=== PATIENT | male | born 1970 ===

== ENCOUNTER 2025-08-19 16:54 | Inpatient (IN) | payer BC, SELFPAY ==
[2025-08-19 11:07] VITALS: BP 146/99
[2025-08-19 11:27] VITALS: BMI 23.3
[2025-08-19 11:55] LABS: Hematocrit 45.7 % (39.0-52.0); Hemoglobin 15.7 g/dL (13.0-18.0); Mean Corp Hgb Conc. 34.4 g/dL (33.0-37.0); Mean Corpuscular Volume 85.1 fL (80.0-94.0); Nucleated Red Blood Cells % 0 % (-); Platelet Count 556 10^3/uL (130-400); Red Cell Dist. Width 13.3 % (11.5-14.5); Urine Character Slightly Cloudy (Clear)
--- NOTE | 2025-08-19 11:58 | ED.GENMED ---
History of Present Illness
<Jeniffer Lombardo SLIP FEEDER - Last Filed: 08/20/25 10:04>
General
Chief Complaint: Abdominal Pain
Source: patient
Exam Limitations: none
Time Seen by Provider: 08/19/25 11:26
Nursing documentation reviewed up to this point in time: agreed with
History of Present Illness
History of Present Illness:
55-year-old male with no significant PMHX, takes no daily meds, hx Left inguinal hernia repair, recent diagnosis with R inguinal hernia 08/[address] Berkowitz and has surgery scheduled with Dr. Osborn on 09/08 presents with generalized abdominal
pain and bloating that has gradually worsened over past 3 weeks. The hernia has not bothered him except when he coughs. He feels the general abdominal pains started immediately after he was informed about the hernia and wonders if it's related. On
08/07, he developed burning and discolored urine and difficulty urinating so was given Bactrim DS which he states helped initially but the day after Thanksgiving 08/15, abdominal pain got worse again. He states abdominal pain keeps him up at night.
Has felt nausea but no vomiting, feels 'acid reflux' like symptoms. Denies fever/chills. Last BM was today, soft, brownish yellow which is unusual for him. Pain is described as dull, with intermittent shooting pains. Now pain 6/10 and feels bloated.
Past History
<Jeniffer Lombardo, SLIP FEEDER - Last Filed: 08/20/25 10:04>
Past History
ED Past Medical History: None
ED Past Surgical History: Other (L inguinal hernia repair)
Social History
Tobacco: Former smoker
Alcohol: None
Personal:
Living: with family
Employment: Employed
Review of Systems
<Jeniffer Lombardo, SLIP FEEDER - Last Filed: 08/20/25 10:04>
Review of Systems
Allergies reviewed?: Yes
All Other Systems: ROS reviewed and negative except as documented in HPI and ROS
Constitutional: Reports weight loss (15 lbs past 3 weeks)
Respiratory: Denies trouble breathing
Cardiac: Denies chest pain
ABD/GI: Reports abdominal pain, nausea and anorexia; Denies vomiting, diarrhea, constipated, bloody stools or black stools
: Reports dysuria and difficulty voiding; Denies flank pain or urgency
Musculoskeletal: Denies edema
Skin: Reports no symptoms
Neurological: Reports no symptoms
Phy Exam
<Jeniffer Lombardo, SLIP FEEDER - Last Filed: 08/20/25 10:04>
Physical Exam
Physical Exam:
GENERAL: No acute distress. A&Ox3.
CONSTITUTIONAL: Afebrile.
EYES: clear, conjunctivae normal
ENMT: moist mucus membranes, Pharynx nl
RESPIRATORY: Regular respirations, nonlabored, lungs clear.
CARDIOVASCULAR: Regular rate and rhythm, no murmurs, no rubs.
GI: Distended, semi firm, generally tender, hyperactive BS
MUSCULOSKELETAL: Moves with ease. Well perfused.
SKIN: Warm, dry, normal
PSYCH: Normal mood and affect. Well kept, interactive and appropriate
NEUROLOGIC: Awake, alert and oriented. No focal neurological deficits
Course
<Jeniffer V. Munira, SLIP FEEDER - Last Filed: 08/20/25 10:04>
Orders/Labs/Results
Orders:
Orders
08/19/25 11:43
Complete Blood Count/With Diff Urgent
Comprehensive Metabolic Panel Urgent
Lipase Urgent
Urinalysis Reflex To Culture Urgent
Date Specimen was Collected: 08/19/25
Time Specimen was Collected: 11:27
Urine Microscopic Reflex Cult Urgent
Urine Culture Urgent
CORINNE Source: U
Specimen Description:
Date Specimen was Collected: 08/19/25
Time Specimen was Collected: 11:27
08/19/25 11:58
CT Abd/pel W Iv And Oral Contr Urgent
Comment:
Reason For Exam: generalized abd pain and bloating
Iohexol [Omnipaque] See Protocol PO NOW STA
08/19/25 15:53
HYDROmorphone [Dilaudid] 1 mg IV NOW STA
Piperacillin/Tazo 4.5 Gram [Zosyn] 4.5 gram in 100 ml IV NOW
08/19/25 15:54
Ondansetron HCl [Zofran] 4 mg PO NOW STA
08/19/25 15:57
0.9% Sodium Chloride 1000 ml [Nss] 1,000 ml IV BOLUS
08/19/25 16:11
ColoRectal Surgery Consult Urgent
Consulting Provider: Quang Miranda
Was physician already notified: Yes
Reason for consult: pelvis abscess
08/19/25 16:20
Ondansetron Injectable [Zofran] 4 mg .ROUTE .STK-MED ONE
Ondansetron Injectable [Zofran] 4 mg IV NOW STA
08/19/25 16:37
Admit/Transfer Patient As Directed
Co-Sign Provider:
Level of Care: Inpatient admission
Assign to:: IMU- Intermediate Care
Physician / Group: danica
Diagnosis: diverticular abscess
Reason for Hospitalization: diverticular abscess
Expected length of stay greater than two midnights?: Yes
ELOS- Estimated Length of Stay in days: 3
I certify the patient meets the requirements for IP care: Yes
Fentanyl Citrate/Pf [Sublimaze] 25 mcg IV [id number] PRN
HYDROmorphone [Dilaudid] 0.25 mg IV [id number] PRN
HYDROmorphone [Dilaudid] 0.5 mg IV PACU-Q5MPRN PRN
Ondansetron Injectable [Zofran] 4 mg IV PACU-ONCEPRN PRN
Prochlorperazine [Compazine] 5 mg IV PACU-ONCEPRN PRN
Notify MD As Directed
Notify physician if: for SDS patients with known or suspected sleep obstructive sleep apnea, monitor in the
PACU.
Notify MD for any apneic/desaturation episodes
PRN Pain Medication Management As Directed
May give lesser potent ordered pain med per pt: Yes
preference::
Protocol:: Medication orders for pain may be administered in a
manner that supports deferring to patient preference
when the pt is:
- Requesting an ordered lesser potent pain medication.
Least to most potent pain medications are defined
as: acetaminophen < NSAID < tramadol < opioids
(morphine, oxycodone, hydromorphone).
- Requesting a lesser dose of the same medication IF
ORDERED.
- Requesting a less intrusive route of administration
if both routes are prescribed by the provider (PO <
IV).
O2 Therapy [RESP] Urgent
Titrate/Wean O2 to maintain O2 sat greater than (%): 92
Special Instructions: -Provide supplemental oxygen to achieve O2 sat of 92% or greater.
-After 15 min, may wean O2 and discontinue if patient is able to maintain O2 sat of 92%
or greater during recovery period.
If patient is a discharge home, without oxygen therapy, notify anestheiologist if
unable to maintain O2 SAT of 92% or greater on room air for MD clearance.
08/19/25 16:38
Code Status As Directed
Resuscitation Status: Full Code
08/19/25 16:42
Blood Culture Q30M
CORINNE Source: Blood/Venous
Specimen Description:
Blood Culture Q30M
CORINNE Source: Blood/Venous
Specimen Description:
08/19/25 16:45
Normosol (Mult Electrolytes) [Normosol-R/Plasmalyte-A] 1,000 ml IV PER PROTOCOL
08/19/25 16:55
PRN Pain Medication Management As Directed
May give lesser potent ordered pain med per pt: Yes
preference::
Protocol:: Medication orders for pain may be administered in a
manner that supports deferring to patient preference
when the pt is:
- Requesting an ordered lesser potent pain medication.
Least to most potent pain medications are defined
as: acetaminophen < NSAID < tramadol < opioids
(morphine, oxycodone, hydromorphone).
- Requesting a lesser dose of the same medication IF
ORDERED.
- Requesting a less intrusive route of administration
if both routes are prescribed by the provider (PO <
IV).
08/19/25 20:32
0.9% Sodium Chloride 1000 ml [Nss] 1,000 ml IV 80 mls/hr
Acetaminophen [Tylenol] 650 mg PO Q4HPRN PRN
Enoxaparin Sodium [Lovenox] 40 mg SC QPM
Ondansetron Injectable [Zofran] 4 mg IV Q6HPRN PRN
08/19/25 20:32
Activity As Directed
Activity Level: As Tolerated
Vital Signs As Directed
Frequency: Per unit guidelines
DX Deep Vein Thrombosis Video Routine
08/19/25 22:00
Piperacillin/Tazo 3.375 Gram [Zosyn] 3.375 gram in 50 ml IV Q6H
08/20/25 04:46
Complete Blood Count/No Diff IN AM
08/20/25 Breakfast
NPO
Allow oral meds: Yes
Allow clear liquids: No
NPO with Ice Chips: Yes
08/21/25 06:00
Basic Metabolic Panel IN AM
Complete Blood Count/No Diff IN AM
08/22/25 06:00
Basic Metabolic Panel IN AM
Complete Blood Count/No Diff IN AM
08/23/25 06:00
Basic Metabolic Panel IN AM
Abnormal Lab Results
08/19/25
11:43
WBC 18.6 H 10^3/uL
(4.8-10.8)
Plt Count 556 H 10^3/uL
(130-400)
Abs Immat Gran (auto) 0.1 H 10^3/uL
(0-0.05)
Absolute Neuts (auto) 16.4 H 10^3/uL
(1.4-6.5)
Absolute Lymphs (auto) 1.0 L 10^3/uL
(1.2-3.4)
Absolute Monos (auto) 1.0 H 10^3/uL
(0.1-0.6)
Neutrophils % 88.4 H %
(42.2-75.2)
Lymphocytes % 5.4 L %
(20.5-51.1)
Sodium 131 L mmol/L
(135-145)
Chloride 93 L mmol/L
(98-107)
BUN 24 H mg/dl
(9-20)
Glucose 109 H mg/dl
(70-99)
Total Protein 8.3 H g/dl
(6.3-8.2)
Urine Ketones 2+ A
(Negative)
Ur Occult Blood Reflex 2+ A
(Negative)
Urine Nitrite (Reflex) Positive A
(Negative)
Urine Bilirubin 2+ A
(Negative)
Leukocyte Esterase Rfl 3+ A
(Negative)
Urine WBC (Reflex) 50-60 A /HPF
(0-5)
Urine Bacteria (Reflex) Many A
(Negative)
Urine Albumin (Reflex) 2+ A
(Neg - Trace)
08/19/25 11:43
08/19/25 11:43
Vital Signs
Initial and Last Documented VS:
Initial Vital Signs
Temp Pulse Resp BP Pulse Ox
97.8 F 115 18 146/99 97
08/19/25 11:07 08/19/25 11:07 08/19/25 11:07 08/19/25 11:07 08/19/25 11:07
Last Documented Vital Signs
Temp Pulse Resp BP Pulse Ox
97.9 F 79 17 140/81 97
08/20/25 04:06 08/20/25 09:21 08/20/25 09:21 08/20/25 09:21 08/20/25 08:27
Chief Engineer Production consulted with Physician
Chief Engineer Production consulted with physician?: Yes
Name of Physician Consulted: Carolina
<Misael Figueroa, DO - Last Filed: 08/19/25 16:21>
Orders/Labs/Results
Orders:
Orders
08/19/25 11:43
Complete Blood Count/With Diff Urgent
Comprehensive Metabolic Panel Urgent
Lipase Urgent
Urinalysis Reflex To Culture Urgent
Date Specimen was Collected: 08/19/25
Time Specimen was Collected: 11:27
Urine Microscopic Reflex Cult Urgent
Urine Culture Urgent
CORINNE Source: U
Specimen Description:
Date Specimen was Collected: 08/19/25
Time Specimen was Collected: 11:27
08/19/25 11:58
CT Abd/pel W Iv And Oral Contr Urgent
Comment:
Reason For Exam: generalized abd pain and bloating
Iohexol [Omnipaque] See Protocol PO NOW STA
08/19/25 15:53
HYDROmorphone [Dilaudid] 1 mg IV NOW STA
Piperacillin/Tazo 4.5 Gram [Zosyn] 4.5 gram in 100 ml IV NOW
08/19/25 15:54
Ondansetron HCl [Zofran] 4 mg PO NOW STA
08/19/25 15:57
0.9% Sodium Chloride 1000 ml [Nss] 1,000 ml IV BOLUS
08/19/25 16:11
ColoRectal Surgery Consult Urgent
Consulting Provider: Quang Miranda
Was physician already notified: Yes
Reason for consult: pelvis abscess
08/19/25 16:20
Ondansetron Injectable [Zofran] 4 mg .ROUTE .STK-MED ONE
Ondansetron Injectable [Zofran] 4 mg IV NOW STA
08/19/25 16:37
Admit/Transfer Patient As Directed
Co-Sign Provider:
Level of Care: Inpatient admission
Assign to:: IMU- Intermediate Care
Physician / Group: danica
Diagnosis: diverticular abscess
Reason for Hospitalization: diverticular abscess
Expected length of stay greater than two midnights?: Yes
ELOS- Estimated Length of Stay in days: 3
I certify the patient meets the requirements for IP care: Yes
Fentanyl Citrate/Pf [Sublimaze] 25 mcg IV [id number] PRN
HYDROmorphone [Dilaudid] 0.25 mg IV PACU-Q5MPRN PRN
HYDROmorphone [Dilaudid] 0.5 mg IV PACU-Q5MPRN PRN
Ondansetron Injectable [Zofran] 4 mg IV PACU-ONCEPRN PRN
Prochlorperazine [Compazine] 5 mg IV PACU-ONCEPRN PRN
Notify MD As Directed
Notify physician if: for SDS patients with known or suspected sleep obstructive sleep apnea, monitor in the
PACU.
Notify MD for any apneic/desaturation episodes
PRN Pain Medication Management As Directed
May give lesser potent ordered pain med per pt: Yes
preference::
Protocol:: Medication orders for pain may be administered in a
manner that supports deferring to patient preference
when the pt is:
- Requesting an ordered lesser potent pain medication.
Least to most potent pain medications are defined
as: acetaminophen < NSAID < tramadol < opioids
(morphine, oxycodone, hydromorphone).
- Requesting a lesser dose of the same medication IF
ORDERED.
- Requesting a less intrusive route of administration
if both routes are prescribed by the provider (PO <
IV).
O2 Therapy [RESP] Urgent
Titrate/Wean O2 to maintain O2 sat greater than (%): 92
Special Instructions: -Provide supplemental oxygen to achieve O2 sat of 92% or greater.
-After 15 min, may wean O2 and discontinue if patient is able to maintain O2 sat of 92%
or greater during recovery period.
If patient is a discharge home, without oxygen therapy, notify anestheiologist if
unable to maintain O2 SAT of 92% or greater on room air for MD clearance.
08/19/25 16:38
Code Status As Directed
Resuscitation Status: Full Code
08/19/25 16:42
Blood Culture Q30M
CORINNE Source: Blood/Venous
Specimen Description:
Blood Culture Q30M
CORINNE Source: Blood/Venous
Specimen Description:
08/19/25 16:45
Normosol (Mult Electrolytes) [Normosol-R/Plasmalyte-A] 1,000 ml IV PER PROTOCOL
08/19/25 16:55
PRN Pain Medication Management As Directed
May give lesser potent ordered pain med per pt: Yes
preference::
Protocol:: Medication orders for pain may be administered in a
manner that supports deferring to patient preference
when the pt is:
- Requesting an ordered lesser potent pain medication.
Least to most potent pain medications are defined
as: acetaminophen < NSAID < tramadol < opioids
(morphine, oxycodone, hydromorphone).
- Requesting a lesser dose of the same medication IF
ORDERED.
- Requesting a less intrusive route of administration
if both routes are prescribed by the provider (PO <
IV).
08/19/25 20:32
0.9% Sodium Chloride 1000 ml [Nss] 1,000 ml IV 80 mls/hr
Acetaminophen [Tylenol] 650 mg PO Q4HPRN PRN
Enoxaparin Sodium [Lovenox] 40 mg SC QPM
Ondansetron Injectable [Zofran] 4 mg IV Q6HPRN PRN
08/19/25 20:32
Activity As Directed
Activity Level: As Tolerated
Vital Signs As Directed
Frequency: Per unit guidelines
DX Deep Vein Thrombosis Video Routine
08/19/25 22:00
Piperacillin/Tazo 3.375 Gram [Zosyn] 3.375 gram in 50 ml IV Q6H
08/20/25 04:46
Complete Blood Count/No Diff IN AM
08/20/25 Breakfast
NPO
Allow oral meds: Yes
Allow clear liquids: No
NPO with Ice Chips: Yes
08/21/25 06:00
Basic Metabolic Panel IN AM
Complete Blood Count/No Diff IN AM
08/22/25 06:00
Basic Metabolic Panel IN AM
Complete Blood Count/No Diff IN AM
08/23/25 06:00
Basic Metabolic Panel IN AM
Abnormal Lab Results
08/19/25
11:43
WBC 18.6 H 10^3/uL
(4.8-10.8)
Plt Count 556 H 10^3/uL
(130-400)
Abs Immat Gran (auto) 0.1 H 10^3/uL
(0-0.05)
Absolute Neuts (auto) 16.4 H 10^3/uL
(1.4-6.5)
Absolute Lymphs (auto) 1.0 L 10^3/uL
(1.2-3.4)
Absolute Monos (auto) 1.0 H 10^3/uL
(0.1-0.6)
Neutrophils % 88.4 H %
(42.2-75.2)
Lymphocytes % 5.4 L %
(20.5-51.1)
Sodium 131 L mmol/L
(135-145)
Chloride 93 L mmol/L
(98-107)
BUN 24 H mg/dl
(9-20)
Glucose 109 H mg/dl
(70-99)
Total Protein 8.3 H g/dl
(6.3-8.2)
Urine Ketones 2+ A
(Negative)
Ur Occult Blood Reflex 2+ A
(Negative)
Urine Nitrite (Reflex) Positive A
(Negative)
Urine Bilirubin 2+ A
(Negative)
Leukocyte Esterase Rfl 3+ A
(Negative)
Urine WBC (Reflex) 50-60 A /HPF
(0-5)
Urine Bacteria (Reflex) Many A
(Negative)
Urine Albumin (Reflex) 2+ A
(Neg - Trace)
08/19/25 11:43
08/19/25 11:43
Vital Signs
Initial and Last Documented VS:
Initial Vital Signs
Temp Pulse Resp BP Pulse Ox
97.8 F 115 18 146/99 97
08/19/25 11:07 08/19/25 11:07 08/19/25 11:07 08/19/25 11:07 08/19/25 11:07
Last Documented Vital Signs
Temp Pulse Resp BP Pulse Ox
97.9 F 79 17 140/81 97
08/20/25 04:06 08/20/25 09:21 08/20/25 09:21 08/20/25 09:21 08/20/25 08:27
<Jeniffer Lombardo, SLIP FEEDER - Last Filed: 08/20/25 10:04>
MDM/Problems Addressed
Differential Diagnosis Includes:
Mall obstruction, UTI, GERD, gallbladder disease, pancreatitis, bowel obstruction, diverticulitis, appendicitis
MDM/Problems Addressed:
55-year-old male with no significant PMHX, takes no daily meds, hx Left inguinal hernia repair, recent diagnosis with R inguinal hernia 08/[address] Berkowitz and has surgery scheduled with Dr. Osborn on 09/08 presents with generalized abdominal
pain and bloating that has gradually worsened over past 3 weeks. The hernia has not bothered him except when he coughs. He feels the general abdominal pains started immediately after he was informed about the hernia and wonders if it's related. On
08/07, he developed burning and discolored urine and difficulty urinating so was given Bactrim DS which he states helped initially but the day after Thanksgiving 08/15, abdominal pain got worse again. He states abdominal pain keeps him up at night.
Has felt nausea but no vomiting, feels 'acid reflux'
12:10 PM CBC: WBC 18.6 With a left shift.
CMP: No clinically significant abnormality
UA: Nitrite positive leukocytes, 2+ ketones 2+ occult blood, bilirubin, 50-60 WBCs many bacteria, 2+ albumin,
3:45 PM:
Radiology report texted to me: CT showing pretty significant abscess within his pelvis, which is likely diverticular.
Resultant significant distention of the colon.
The right colon is distended, and there is probably a small amount of pneumatosis within the wall the colon.
Probably needs to be looked at to see if the colon can be decompressed in some fashion. Helen ordered.
Dr Figueroa in and informed pt of diagnosis and plan
Dr. Spann surgery notified, requested admit to Medicine, Colorectal consult. Dr. Miranda Colorectal notified.
Hospitalist notified of admission.
<Jeniffer Lombardo, SLIP FEEDER - Last Filed: 08/20/25 10:04>
*Pulse Oximetry
SaO2: 97
Oxygen Mode of Delivery: Room air
Patient hypoxic: no
*Critical Care Note
Total Time (30-74mins, 75-104mins- exclusive of procedures): Not Applicable
ED Attending Note
<Jeniffer Lombardo SLIP FEEDER - Last Filed: 08/20/25 10:04>
-
Portions of this chart may have been created with voice recognition software.� Occasional wrong word or��sound alike� substitutions may have occurred due to the inherent limitations of voice recognition software.
<Misael Figueroa DO - Last Filed: 08/19/25 16:21>
ED Attending Note
Patient seen and examined by attending physician: Yes
I performed the substantive portion of visit, reviewed & personally made and approve the management plan that is documented in note by myself or RAMILA.: Yes
I performed a history and physical exam of patient and discussed management with resident, I reviewed resident's note and agree with documented findings and plan of care.: Yes
ED Attending Note:
55-year-old male presents to the ER for evaluation of worsening abdominal bloating along with intermittent severe lower abdominal discomfort. Patient denies any prior significant medical history. Vital signs reviewed, patient appears with sallow
complexion, mucous membranes tacky, abdomen is distended with tympany diffusely, moderate diffuse pain on palpation without rebound, extremities without edema, GCS is 15. I discussed with patient very worrisome CT findings including pelvic abscess
along with area of pneumatosis in the colon. Broad-spectrum antibiotics are ordered. Additional pain reliever is ordered. Nurse practitioner was able to review all test results with on-call surgeon who would request colorectal surgery
consultation and admission to the hospitalist service
Discharge Plan
Departure
Patient Disposition: Admit
Date of Disposition: 08/19/25
Time of Disposition: 16:06
Presentation/result/management discussed w/ accepting MD/DO: Hospitalist
Condition: Serious
Discharge Problem:
Colonic diverticular abscess
Interventions
Interventions:
*Risk Screen - Suicide Last Done: 08/19/25 11:07
*General Assessment Last Done: 08/19/25 11:11
*Neglect/Abuse Screening Last Done: 08/19/25 11:11
*ED COVID-19 Vaccine History Last Done: 08/19/25 11:11
*ED Influenza Vaccine History Last Done: 08/19/25 11:11
[facility] Fall Risk Assessment Tool Last Done: 08/19/25 11:27
*Nursing Disposition Last Done: 08/19/25 18:01
[id number] Assessment Last Done: 08/19/25 11:27
Discharge Date and Time
Discharge Date/Time: 08/19/25 18:01
[2025-08-19 12:03] LABS: Urine Red Blood Cell 0-2 /HPF (0-2); Urine Squamous Cell 0-2 /LPF (Few); Urine White Cell 50-60 /HPF (0-5)
[2025-08-19] MEDS: OMNIPAQUE 50 ML PO (12:10)
[2025-08-19 12:11] LABS: ALT (SGPT) 28 U/L (0-50); AST (SGOT) 34 U/L (17-59); Albumin 4.3 g/dl (3.5-5.0); Alkaline Phosphatase 91 U/L (38-126); Blood Urea Nitrogen 24 mg/dl (9-20); Calcium 9.2 mg/dl (8.4-10.2); Carbon Dioxide 25 mmol/L (22-30); Chloride 93 mmol/L (98-107); Estimated Creatinine Clearance 70 ml/min; Glucose 109 mg/dl (70-99); Lipase 166 U/L (23-300); Potassium 4.0 mmol/L (3.5-5.1); Sodium 131 mmol/L (135-145); Total Protein 8.3 g/dl (6.3-8.2); eGFR > 60.00
--- NOTE | 2025-08-19 16:17 | HPS.HSE ---
Addendum entered and electronically signed by Ivan Beebe MD 08/19/25 19:03:
55-year-old male with past medical history of diverticulitis 5 years ago treated with IV antibiotics, left hernia repair, recent right inguinal hernia scheduled for surgery on 08/09, presenting with abdominal pain and bloating for past 3 weeks with
loose brownish-yellow stool, nausea without vomiting. �No fevers or chills.
Recently had urinary frequency treated with Bactrim completed today, still with urinary frequency.
Vital signs show blood pressure up to 169/97. �Tachycardia to 115.
Labs show leukocytosis of 18.6.
Urinalysis shows +2 leukocyte esterase, 50-60 WBC. �Positive nitrates.
CT abdomen pelvis shows 2 extraluminal collections within the pelvis originating from the left lateral wall of loop of sigmoid colon likely diverticulitis with diverticular abscesses. �Resulting thickening of the wall of the sigmoid colon with more
proximal significant colonic distention. �Right colon distended predominantly with fluid and there is pneumatosis within the wall of the right colon, raising concern for ischemia.
Mild left ureteral and pelviccalyceal dilatation likely due to extrinsic compression of the left ureter within the pelvis by pelvic abscesses.
Patient with concern for acute diverticulitis with multiple diverticular abscesses within the pelvis/loop of sigmoid colon. �Also with concern for pneumatosis within the wall of the sigmoid colon concerning for acute bowel ischemia. �Also with mild
left ureteral obstruction from pelvic abscess. �Also with concern for persistent UTI. �N.p.o., IV fluids, Zosyn, Dilaudid, Zofran, colorectal surgery consulted with plan for operating room today.�
Original Note:
Family Physician
-
Family Physician: Ruddy Johnston
Chief Complaint
-
abdominal distention, pain, loose stool
History of Present Illness
55-year-old male with past medical history of intestine infection akes no daily meds, hx Left inguinal hernia repair, recent diagnosis with R inguinal hernia 08/[address] Berkowitz and has surgery scheduled with Dr. Osborn on 09/08 presents with
generalized abdominal pain and bloating that has gradually worsened over past 3 weeks. Patient stated the pain was intermittent and he was having loose brownish-yellow stools .patient stated poor appetite. Patient stated nausea. For past few days
he noticed worsening abdominal distention with frequent worsening pain. Patient denied any fever, chills, headache, dizzy or syncope. Patient denied chest pain or shortness of breath, cough, congestion. On 08/07, he developed burning and
discolored urine and difficulty urinating so was given Bactrim DS which he states helped initially but the day after Thanksgiving 08/15, abdominal pain got worse again. He states abdominal pain keeps him up last night.
CT concerning for diverticular abscess. Colorectal consulted. Patient received a dose of Dilaudid, fluids, Zofran, Zosyn in ER. Admitting for further management. Blood culture sent from ER
Medical History
Past Medical History
Past Medical History: Reports Other
Additional Past Medical History:
intestine infection
Past Surgical History: Reports Other
Additional Past Surgical History:
Hernia repair
Social History
Tobacco: Former Smoker
Alcohol: None
Drug: None
Family History
Family History: Not pertinent
Allergies / Home Medications
Allergies reflects when Allergies were last updated in [facility].
Home Medications with original date entered in [facility]
Allergy/Medication List:
Allergies
Allergy/AdvReac Type Severity Reaction Status Date / Time
shellfish derived Allergy Nausea / Verified 08/19/25 11:09
Vomiting
Home Medications
sulfamethoxazole 800 mg-trimethoprim 160 mg tablet 1 tab PO BID Infection 08/19/25
Review of Systems
-
Constitutional: Reports No Symptoms
EENT: Reports No Symptoms
Respiratory: Reports No Symptoms
Cardiac: Reports No Symptoms
Abdomen/GI: Reports Abdominal Pain and Nausea
: Reports No Symptoms
Musculoskeletal: Reports No Symptoms
Skin: Reports No Symptoms
Neurological: Reports No Symptoms
Endocrine: Reports No Symptoms
Hematologic/Lymphatic: Reports No Symptoms
Psych: Reports No Symptoms
Physical Exam
Vital Signs
Vital Signs
Temp Pulse Resp BP Pulse Ox
97.8 F 115 18 146/99 97
08/19/25 11:07 08/19/25 11:07 08/19/25 11:07 08/19/25 11:07 08/19/25 12:09
Physical Exam
General: Well Developed, Well Nourished and No Apparent Distress
HEENT: NormoCephalic, Moist mucous membranes and Atraumatic
Respiratory: Clear
Cardiac: S1/S2 and Regular Rhythm; No Murmur or Rub
GI: Soft, Non Tender, Normal Bowel Sounds and Distended; No Organomegaly
Rectal: Deferred by Provider
Musculoskeletal: No Clubbing, No Cyanosis and No Edema
Skin: No Rash
Neuro: AO x 3 and Nonfocal/grossly intact
Psych: Calm
Laboratory Results
-
08/19/25 11:43
08/19/25 11:43
Laboratory Results
Total Bilirubin 0.8 mg/dl (0.2-1.3) 08/19/25 11:43
AST 34 U/L (17-59) 08/19/25 11:43
ALT 28 U/L (0-50) 08/19/25 11:43
Alkaline Phosphatase 91 U/L (38-126) 08/19/25 11:43
Lipase 166 U/L (23-300) 08/19/25 11:43
Data Reviewed
-
CT Scan: Report Reviewed by me
Lab Data: Labs Reviewed by me
Impression/Plan
-
#abdominal pain/bloating concern of diverticular abscess/diverticulitis
#pneumatosis of the right colon
- WBCs 18.6
- IV Zosyn continued
- Keep patient n.p.o.
-blood culture sent from ER.
-Dilaudid prn for pain
-Zofran prn for n/v
- Surgery consulted
- CT abdomen pelvis with impression of there are 2 extraluminal collections within the pelvis, which both appear to originate from the left lateral wall of a loop of sigmoid colon. This most likely represents diverticulitis with diverticular
abscesses.Resultant thickening of the wall the sigmoid colon with more proximal significant colonic distention.The right colon is distended predominantly with fluid, and there is pneumatosis within the wall of the right colon. The finding of
pneumatosis is nonspecific but does raise concern for ischemia on the basis of distention.No evidence of free intraperitoneal air.There is a small to moderate amount of free fluid.Cholelithiasis. No CT findings to suggest acute cholecystitis.Mild
left ureteral and pelvicalyceal dilation, which is likely due to extrinsic compression of the left ureter within the pelvis by pelvic abscesses.
# Acute hyponatremia likely hypovolemia
- Sodium 131
- Fluids continued
- Trend BMP in the morning
# Urinary tract infection
- On Zosyn
- Urine culture pending
# DVT prophylaxis
- Lovenox
# CODE STATUS
- Full code
[2025-08-19 16:23] VITALS: BP 169/97
[2025-08-19] MEDS: DILAUDID 1 MG IV (16:27)
[2025-08-19] MEDS: ZOFRAN 4 MG IV ×2 (16:28→21:05)
[2025-08-19] MEDS: NSS 1000 IV (16:30)
[2025-08-19] MEDS: ZOSYN 100 IV (16:30)
[2025-08-19 17:01] VITALS: BP 160/92
--- NOTE | 2025-08-19 17:37 | CON.CRS ---
Consultation
-
Date/Time Consultation Requested: 08/19/25 @ 4:06
Date/Time Consultation Performed: 08/19/25 @ 17:00
Requesting Provider: LORI Morales
Performing Provider: Marco Miranda MD
Reason for Consultation: Diverticulitis with abscess and bowel obstruction
Medical History
-
Chief Complaint: Abdominal pain
History of Present Illness:
55-year-old male with a history of sigmoid diverticulitis in the past, who presents to the emergency room with diffuse abdominal pain and distention that has become progressively worse over the past 3 weeks. Typically his bowels are regular but
over the past month they become more loose. He has had a loss of appetite with occasional retching. Today he felt the chills. He last passed flatus this morning. He has a known right inguinal hernia and is scheduled for surgery in a couple of
weeks. He was admitted to [facility] about 5 years ago and was hospitalized for a week. He states a drain was not placed and he underwent a follow-up colonoscopy that was normal with the exception of diverticular disease. Surgery was
apparently discussed. Last week he developed dysuria and was started on Bactrim DS; he denies any pneumaturia or fecal urea. He has not undergone any previous abdominal surgery. He has undergone a left inguinal hernia repair in the past. There
is no family history of colon cancer or inflammatory bowel disease.
While in the ED he remains afebrile and his pulse is 115. His blood pressure is 160/92 and his respirations are 26. He appears in mild distress secondary to pain and his abdomen is markedly distended. There is mild tenderness to deep palpation on
the right and there is tympany throughout. His white count is 18.6, hemoglobin 15.7 g/dL. His platelet count is 556,000. I personally reviewed the CT scan and report. There are 2 extraluminal collections within the pelvis associated with colonic
inflammation, most likely diverticulitis. The entire colon is distended and the transverse colon measured 8.6 cm in diameter and the cecum 9.4 cm. There appears to be pneumatosis in the wall of the right colon. The small bowel is also mildly
dilated. There is no free air or air within the bladder. There appears to be some compression of the left ureter. Incidentally noted is a gallstone and there is a known right inguinal hernia.
Past Medical History
Past Medical History: Diverticulitis
Past Surgical History: Hernia Repair (Left inguinal)
Social History
Tobacco: Former Smoker (20 years ago)
Alcohol: Occasional
Drug: None
Personal:
Living: With Family
Employment: Employed
Family History
Family History: Reviewed & Not Pertinent
Allergies / Home Medications
Allergy/AdvReac Type Severity Reaction Status Date / Time
shellfish derived Allergy Nausea / Verified 08/19/25 11:09
Vomiting
�Medication �Instructions �Recorded �Confirmed �Type
sulfamethoxazole 800 1 tab PO BID Infection 08/19/25 08/19/25 History
mg-trimethoprim 160 mg tablet
Review of Systems
-
History Source: Patient
All other systems: Negative unless noted
A 10 point review of systems was completed, and was negative except as per HPI.
Physical Exam
Vital Signs
Temp 97.8 F 08/19/25 16:23
Pulse 103 08/19/25 17:15
Resp Rate 26 08/19/25 17:15
Blood pressure 160/92 08/19/25 17:01
SaO2 94 08/19/25 17:15
08/18/25 08/19/25 08/20/25
06:59 06:59 06:59
Actual Weight 73.7 kg
Body Mass Index (BMI) 23.3
Lab Results / Allergies
08/19/25 11:43
08/19/25 11:43
WBC 18.6 10^3/uL (4.8-10.8) H 08/19/25 11:43
Hgb 15.7 g/dL (13.0-18.0) 08/19/25 11:43
Hct 45.7 % (39.0-52.0) 08/19/25 11:43
Plt Count 556 10^3/uL (130-400) H 08/19/25 11:43
Abs Immat Gran (auto) 0.1 10^3/uL (0-0.05) H 08/19/25 11:43
Neutrophils % 88.4 % (42.2-75.2) H 08/19/25 11:43
Allergy/AdvReac Type Severity Reaction Status Date / Time
shellfish derived Allergy Nausea / Verified 08/19/25 11:09
Vomiting
Physical Exam
General: Well Developed, Well Nourished and Pain
HEENT: Anicteric
GI: Tender (Right lower quadrant to deep palpation; no peritoneal signs) and Distended
Genito-urinary: Inguinal Hernia (On the right, reducible)
Musculoskeletal: No Edema
Neuro: Awake and Alert
Psych: Calm
Data Reviewed
-
CT Scan: Image Personally Visualized and interpreted, Report Reviewed by me, Discussed with Patient and Discussed with Family
Labs: Labs Reviewed by me, Discussed with Patient and Discussed with Family
Assessment / Plan
-
Diverticulitis with extensive pelvic abscess resulting in a bowel obstruction and compression of the left ureter. There appears to be pneumatosis in the right colon.
I reviewed the current findings with the patient and his (via telephone) and discussed the treatment options with the risks and benefits of each. Nonoperative management would involve drainage of the pelvic abscesses and an NG tube but my
concern is a perforation of the cecum. Surgery would involve a laparotomy, bowel resection with ileostomy, mucous fistula (s), possible resection of the inflamed segment with closure of the rectum and and drainage of the abscesses. I explained
that the inflamed segment might not be resectable at this time and hopefully it will improve with proximal diversion and drainage but there is a chance of further surgery is necessary on this admission. I explained that technically the ileostomy is
temporary and I will try to preserve as much bowel as possible. Risks of surgery include, but are not limited to, bleeding, infection, adhesions, hernias, injury other structures, stoma complications, persistent abscesses requiring further drainage
and possible surgery, cardiopulmonary complications, DVT, positioning injuries, and the risks of anesthesia. I also reviewed the typical recovery both in and out of the hospital as well as the functional results. All questions answered and they
wish to proceed.
[2025-08-19 20:26] VITALS: BP 146/99
--- NOTE | 2025-08-19 20:31 | W.IMMPOSTOP ---
Surgical Immed Post Op Note
-
Primary Surgeon: Marco Miranda MD
Assisting Surgeon:Ruddy Cuevas MD
Pre-op Diagnosis: Large bowel obstruction
Post-op Diagnosis: Same
Procedure Performed: Exploratory laparotomy, transverse loop colostomy, FRANCK block
Anesthesia Type: GET
Specimen / Cultures: Pelvic cultures
Estimated Blood Loss: 20cc
Complications: None
Operative Findings: Markedly distended proximal colon with a few patchy areas with serosal tears, no perforation
Diffuse distention of the small bowel without obstruction
Hard mass extending from the distal sigmoid colon to below the pelvic reflection (diverticulitis vs cancer)
No intra-abdominal abscess
No metastatic disease
NGT in the fundus of the stomach
Mid-transverse loop colostomy
Seprafilm placed at the midline incision
Patient's updated via telephone.
[2025-08-19] MEDS: DILAUDID 0.25 MG IV ×2 (20:48→21:10)
[2025-08-19] MEDS: LOVENOX 40 MG SC (22:13)
[2025-08-19] MEDS: NORMOSOL-R/PLASMALYTE-A 1000 IV (22:13)
[2025-08-19] MEDS: TORADOL 15 MG IV (22:14)
[2025-08-19 22:29] VITALS: BP 151/76
[2025-08-19 22:34] VITALS: BMI 23.4
[2025-08-19] MEDS: COMPAZINE 5 MG IV (22:58)
[2025-08-19] MEDS: ZOSYN 50 IV (22:59)
--- NOTE | 2025-08-19 23:44 | PTCARENOTE ---
Received verbal report from BERYL Richardson. Patient arrived to IMU via bed from PACU. Pt ox3, drowsy and easily arousable. Pt c/o throat discomfort and nausea. TELEPHONE SALES AGENT notified and orders received for IV Compazine and throat spray (see NOV). Pt c/o 11/25
aching abdominal pain. CLAUDINE Torodal administered, pt's currently asleep. NSR on the monitor, hr 78. SpO2 95% on 2L NC. Boone in place draining yellow urine. Colostomy red and budded with sanguinous output. Midline incision Aquacel dressing intact
with moderate amount of sanguinous drainage. Right nare NGT at 63 cm to continuous suction, site care completed. NGT irrigated per order. Assessment and VS as documented. Admission complete. Patient resting in bed with call fernandez in reach.
[2025-08-19 23:48] VITALS: BP 119/69
[2025-08-20] VITALS (17 sets, daily range): BP systolic 113–149; BP diastolic 68–91; PULSE 72; O2SAT 100; BMI 23.3
[2025-08-20] MEDS: TORADOL IV (04:22)
[2025-08-20] MEDS: DILAUDID 0.5 MG IV ×2 (04:23→23:02)
[2025-08-20] MEDS: ZOSYN 50 IV ×4 (04:59→23:01)
[2025-08-20] MEDS: CHLORASEPTIC/SORE THROAT SPRAY 1 SPRAY PO (04:59)
[2025-08-20 05:14] LABS: Hematocrit 40.4 % (39.0-52.0); Hemoglobin 14.0 g/dL (13.0-18.0); Mean Corp Hgb Conc. 34.7 g/dL (33.0-37.0); Mean Corpuscular Volume 86.1 fL (80.0-94.0); Platelet Count 468 10^3/uL (130-400); Red Cell Dist. Width 13.2 % (11.5-14.5)
--- NOTE | 2025-08-20 05:28 | PTCARENOTE ---
0350
Patients midline dressing and gown saturated in blood. During hourly rounds prior to this, the drainage on the aquacel dressing did not extend past where it was marked off by the ROLL CARRIER. Colorectal surgery and FRONT OFFICE SPECIALIST made aware. Instructed by
colorectal surgery to remove dressing and replace with dry 4x4s. Incisional approximated with sandy intact. Several large blood clots along the incision. Wound care completed and surgery updated. Morning labs obtained. VS as documented, pt
asymptomatic.
--- NOTE | 2025-08-20 08:15 | W.PN.CRS1 ---
Today's Communication / Plan
-
maintain ngt until bowel function
continue abx
oob
Assessment/Plan
-
POD#1 Exploratory laparotomy, transverse loop colostomy, FRANCK block
Vitals: normal
Hgb: 14.0, WBC: 23.2 (18.6)
Boone: 425ml
NGT: 350ml
NS@100ml/hr
-Maintain NGT, await bowel function
-Wound RN for stoma teaching
-Continue IVFs while NPO
-Pain control: tylenol/toradol standing, Dilaudid PRN
-OR pathology pending
-OOB as tolerated
-Start lovenox for DVT prophylaxis. TEDS/SCDS in place.
-Boone: maintain today, d/c tomorrow
-Continue IV Zosyn
-Appreciate hospitalist
Subjective Data
Procedure
08/19/2025- Exploratory laparotomy, transverse loop colostomy, FRANCK block
Subjective Data
Date of Service: August 20, 2025
Patient has an NGT in place. No acute distress. Pain is controlled.
Objective Data
-
Vital Signs
Temp Pulse Resp BP Pulse Ox
97.9 F 68 9 116/68 98
08/20/25 04:06 08/20/25 06:00 08/20/25 06:00 08/20/25 06:00 08/20/25 06:00
Intake & Output
08/19/25 08/20/25 08/21/25
06:59 06:59 06:59
Intake Total 1060 / 1060
Output Total 835 / 835
Balance 225 / 225
Intake:
Oral fluids 0 / 0
IV fluids (Total) 900 / 900
normosol 100 / 100
IV piggybacks 100 / 100
Amount instilled into GI Tube ( 60 / 60
Total)
[place] Sump 60 / 60
Output:
Emesis 50 / 50
Liquid stool amount
Colostomy
Gastrointestinal tube output ( 350 / 350
Total)
[place] Sump 350 / 350
Urine, Boone 425 / 425
Lab Results
08/20/25 04:46
Physical Exam
-
General: No Acute Distress and AOx3
Abdomen: Soft, Non Distended and Non Tender
Skin: Warm and Dry
Wound: Dressing in Place
[2025-08-20] MEDS: NORMOSOL-R/PLASMALYTE-A 1000 IV ×2 (08:36→19:32)
[2025-08-20] MEDS: TORADOL 15 MG IV ×3 (09:31→21:56)
[2025-08-20] MEDS: ZOFRAN 4 MG IV (10:17)
[2025-08-20 10:29] LABS: Blood Urea Nitrogen 24 mg/dl (9-20); Calcium 8.2 mg/dl (8.4-10.2); Carbon Dioxide 28 mmol/L (22-30); Chloride 96 mmol/L (98-107); Estimated Creatinine Clearance 105 ml/min; Glucose 104 mg/dl (70-99); Potassium 5.1 mmol/L (3.5-5.1); Sodium 131 mmol/L (135-145); eGFR > 60.00
--- NOTE | 2025-08-20 11:43 | WOUNDNOTE ---
WO RN Note: Patient s/p loop colostomy late yesterday. Patient's stoma pink and swollen. Stoma bridge in place. Colostomy appliance intact. Colostomy supplies ([place] wafer # [id number], Jeramie seals and [place]ilo pouch # [id number]) and colostomy teaching
folder left in room. Patient instructed how to open and close pouch, how to snap on pouch and cut wafer. Patient gave verbal permission to order a Mila ostomy secure starter kit and signed fax auth form for Chilo ostomy starter kit.
Appliance change planned end of week. Patient gave permission to call his to include in teaching.
--- NOTE | 2025-08-20 11:47 | CM ---
I.A: Completed By CHELO Bauer
Patient lives with his in a ST with 4 STI. No DME, No VN/PT, No STR.
PCP: Dr. Ruddy Berkowitz
Pharm: [facility]
Patient has transportation home. PLAN: Home No Needs vs. VN
--- NOTE | 2025-08-20 14:27 | PTCARENOTE ---
Pt's assessment as documented. Aox3, pleasant. NGT to continuous suction at 80/hr. IVF infusing. Stoma red and budded. Marked areas of drainage on abdominal dressing. OOB to chair with PT. Ringing appropriately, call fernandez within reach.
--- NOTE | 2025-08-20 16:32 | W.PN.UPDATE ---
Update Note
Progress Note Update
Transferred to CRS Service. CRS aware and agrees. Please feel free to reach out for further questions.
--- NOTE | 2025-08-20 17:49 | PTCARENOTE ---
Addendum entered by Alicia Jaffe 08/20/25 18:24:
Per Dr Cuevas, marvaay to change dressing. Dressing changed- see wound care intervention. Advised to hold 1800 dose of lovenox.
Original Note:
Sanguinous drainage noted to be all the way to edges of dressing. scallop dredger physician Dr. Cuevas notified via TT. Awaiting further orders.
[2025-08-20] MEDS: LOVENOX SC (18:24)
[2025-08-21] VITALS (15 sets, daily range): BP systolic 119–141; BP diastolic 66–83; PULSE 75; O2SAT 98; BMI 23.4
--- NOTE | 2025-08-21 01:42 | PTCARENOTE ---
Assumed care of Pt from day RN. Pt making needs known, ringing appropriately. Pt having complaints of pain this evening, PRN medication given. Pt NG tube in place to suction, Pt appearing to tolerate well. Midline dressing having some drainage at
this time. Colostomy red and budded with 25cc sanguinous/brown fluid, air moving colostomy burped multiple times. Assessment care and vitals as charted.
[2025-08-21] MEDS: TORADOL 15 MG IV ×3 (02:51→21:15)
[2025-08-21] MEDS: DILAUDID 0.25 MG IV ×2 (02:59→10:39)
[2025-08-21] MEDS: NORMOSOL-R/PLASMALYTE-A 1000 IV ×2 (03:36→12:27)
--- NOTE | 2025-08-21 03:47 | PTCARENOTE ---
Addendum entered by Nayla Hanna RN 08/21/25 03:51:
Pt also noted to have small amount of soft brown stool on red budded ostomy, drainage into bag 25cc of brown stool color drainage.
Original Note:
Pt having large amount of blood coming from midline abd dressing area. Large clot seen in dressing. Trickle of blood coming from top of midline incision where packing appears to be. Dressing changed drainage dressing placed. Pt given pain medication
per order. labs sent.
[2025-08-21 04:05] LABS: Hematocrit 33.4 % (39.0-52.0); Hemoglobin 11.6 g/dL (13.0-18.0); Mean Corp Hgb Conc. 34.7 g/dL (33.0-37.0); Mean Corpuscular Volume 87.7 fL (80.0-94.0); Platelet Count 393 10^3/uL (130-400); Red Cell Dist. Width 13.4 % (11.5-14.5)
[2025-08-21 04:48] LABS: Blood Urea Nitrogen 28 mg/dl (9-20); Calcium 7.7 mg/dl (8.4-10.2); Carbon Dioxide 30 mmol/L (22-30); Chloride 95 mmol/L (98-107); Estimated Creatinine Clearance 94 ml/min; Glucose 82 mg/dl (70-99); Sodium 131 mmol/L (135-145); eGFR > 60.00
[2025-08-21 04:58] LABS: Potassium 4.4 mmol/L (3.5-5.1)
[2025-08-21] MEDS: ZOSYN 50 IV ×4 (06:11→23:04)
[2025-08-21] MEDS: NSS (PRESERVATIVE FREE) 10 ML IV (10:15)
[2025-08-21] MEDS: PROTONIX IV 40 MG IV (10:16)
[2025-08-21] MEDS: TYLENOL PO (10:19)
--- NOTE | 2025-08-21 11:35 | W.PN.CRS1 ---
Today's Communication / Plan
-
ngt clamping trial
continue zosyn
wound care
Assessment/Plan
-
POD#2 Exploratory laparotomy, transverse loop colostomy, FRANCK block
Vitals: normal
Hgb: 11.6 (14.0), WBC: 10.4 (23.2, 18.6)
NGT: 600ml
NS@100ml/hr
-NGT clamping trial today. If removed, npo with sips/chips.
-Wound RN for stoma teaching
-Continue IVFs while NPO
-Pain control: tylenol standing, Dilaudid PRN. Toradol held due to incisional bleeding.
-OR pathology pending
-OOB as tolerated
-Lovenox held due to bleeding. TEDS/SCDS in place.
-Boone removed this AM, await void
-Continue IV Zosyn
-Appreciate hospitalist
Subjective Data
Procedure
08/19/2025- Exploratory laparotomy, transverse loop colostomy, FRANCK block
Subjective Data
Date of Service: August 21, 2025
Patient states he feels well. The NGT is bothering him. Denies nausea or vomiting. Pain is controlled. Some flatus in the bag. He was out of bed for 2.5 hours yesterday.
Objective Data
-
Vital Signs
Temp Pulse Resp BP Pulse Ox
98.1 F 68 15 119/69 95
08/21/25 07:45 08/21/25 06:00 08/21/25 06:00 08/21/25 06:00 08/21/25 06:00
Intake & Output
08/20/25 08/21/25 08/22/25
06:59 06:59 06:59
Intake Total 1060 / 1060 2040 / 2040
Output Total 835 / 835 1225 / 1225 200 / 200
Balance 225 / 225 815 / 815 -200 / -200
Intake:
Oral fluids 0 / 0 0 / 0
IV fluids (Total) 900 / 900 1200 / 1200
normosol 100 / 100
IV piggybacks 100 / 100 100 / 100
Amount instilled into GI Tube ( 60 60 740 / 740
Total)
[place] Sump 60 / 60 740 / 740
Output:
Emesis 50 / 50
Liquid stool amount / 10
Colostomy /
Gastrointestinal tube output ( 350 / 350 600 / 600
Total)
[place] Sump 350 / 350 600 / 600
Urine, Boone 425 / 425 625 / 625 200 / 200
Other:
Number of unmeasured liquid
stools
Colostomy 25
Lab Results
08/21/25 03:33
08/21/25 03:33
Physical Exam
-
General: No Acute Distress and AOx3
Abdomen: Soft, Non Distended, Non Tender and Other (colostomy warm and pink with flatus in bag)
Skin: Warm and Dry
Wound: Dressing Changed (active bleeding site anterior portion of wound, pressure held)
Incision: Clear, Dry, Intact
--- NOTE | 2025-08-21 11:56 | PTCARENOTE ---
Patients NGT was clamped this morning by colorectal surgeon this morning. Will assess output in 6 hours from clamp time. Patient is denying nausea when asked, normal bowel sounds. Pain treated as per doctors orders. Patient continues to be NPO with
ice chips. Abdominal wound to be dressed by surgeon shortly.
[2025-08-21] MEDS: SILVER NITRATE APPLICATOR 1 EACH TOPICAL (12:28)
--- NOTE | 2025-08-21 12:58 | PTCARENOTE ---
Boone discontinued this morning POD #2 as per doctors orders. Patient has been urinating on his own however urine is cloudy with sediment. Discussed with colorectal surgery team and UA was sent.
--- NOTE | 2025-08-21 13:04 | PN.CDI ---
CDI
- -
CDI:
Physician Documentation Request
Admit Date: 08/19/25 16:54
Dear Doctor/PA,
Please review the following and provide your response in the progress notes.
Clinical Indicators:
Pt admitted with Diverticulitis and abscesses s/p Exploratory laparotomy, transverse loop colostomy 08/19
Progress note 08/21, ' Will control the bleeding from the incision with local measures today. ...Wound: Dressing Changed (active bleeding site anterior portion of wound, pressure held)...'
Trended Hemoglobin/Hematocrits below
Laboratory Tests
08/19/25 08/20/25 08/21/25
11:43 04:46 03:33
Hgb 15.7 14.0 11.6 L
Hct 45.7 40.4 33.4 L
Please provide a diagnosis for the above findings:
Acute blood loss anemia
Low hemoglobin only
Other ( please specify)
Use of terms such as suspected, likely, concern for, or probable (associated with a specific diagnosis that is being evaluated, monitored, or treated as if it exists) are acceptable and can be coded in the inpatient setting, when documented at the
time of discharge.
Thank you,
Ava Jimenez RN
CDI Specialist
[facility]
Please use your independent medical judgment in providing your response.
[2025-08-21 14:31] LABS: Urine Character Cloudy (Clear)
--- NOTE | 2025-08-21 14:32 | PTCARENOTE ---
AFter 6 hours of NGT clamped patient on ly had 25ml of residual. NGT removed as per doctors order.
[2025-08-21] MEDS: CALCIUM GLUCONATE 100 IV (14:46)
[2025-08-21 16:01] LABS: Urine Squamous Cell 0-2 /LPF (Few)
[2025-08-21 16:02] LABS: Urine White Cell >100 /HPF (0-5)
--- NOTE | 2025-08-21 16:13 | WOUNDNOTE ---
WOC RN note: Patient's stoma pink and budded with stoma bridge in place. Soft loose brown stool in pouch. Patient instructed how to empty and change ostomy appliance using Mila wafer # [id number] and Mila pouch # [id number]. Patient opened and
closed pouch, cut some of the ostomy wafer. Peristomal skin intact. Ostomy supplies and teaching folder in room. Next appliance change due Monday or Monday.
--- NOTE | 2025-08-21 17:05 | WOUNDNOTE ---
WOC RN note: Faxed patient signed [place] ostomy secure starter kit request to [employer].
--- NOTE | 2025-08-21 19:00 | PTCARENOTE ---
assumed care of pt after shift report. pt AAOx3. VSS. No current SOB, mild tenderness mid abdomen. Assessment as documented. Call light in reach.
[2025-08-21] MEDS: NORMOSOL-R/PLASMALYTE-A IV (22:14)
[2025-08-21] MEDS: NSS 1000 IV (23:04)
[2025-08-21] MEDS: DILAUDID 0.5 MG IV (23:05)
[2025-08-22] VITALS (14 sets, daily range): BP systolic 116–149; BP diastolic 66–85; PULSE 72; O2SAT 97; BMI 23.4
[2025-08-22] MEDS: TORADOL 15 MG IV ×4 (03:29→21:01)
[2025-08-22 04:01] LABS: Hematocrit 29.0 % (39.0-52.0); Hemoglobin 9.9 g/dL (13.0-18.0); Mean Corp Hgb Conc. 34.1 g/dL (33.0-37.0); Mean Corpuscular Volume 87.9 fL (80.0-94.0); Platelet Count 311 10^3/uL (130-400); Red Cell Dist. Width 13.2 % (11.5-14.5)
[2025-08-22 04:25] LABS: Blood Urea Nitrogen 20 mg/dl (9-20); Calcium 7.8 mg/dl (8.4-10.2); Carbon Dioxide 26 mmol/L (22-30); Chloride 100 mmol/L (98-107); Estimated Creatinine Clearance 105 ml/min; Glucose 58 mg/dl (70-99); Potassium 4.1 mmol/L (3.5-5.1); Sodium 131 mmol/L (135-145); eGFR > 60.00
[2025-08-22] MEDS: ZOSYN 50 IV ×4 (06:03→23:46)
[2025-08-22] MEDS: NORMOSOL-R/PLASMALYTE-A IV (06:03)
[2025-08-22 06:38] LABS: Glucose - Point of Care 64 mg/dl (70-99)
[2025-08-22] MEDS: NORMOSOL-R/PLASMALYTE-A 1000 IV ×2 (06:43→23:47)
[2025-08-22] MEDS: DEXTROSE 50% SYRINGE 12.5 GRAMS IV (06:43)
[2025-08-22 07:43] LABS: Glucose - Point of Care 84 mg/dl (70-99)
--- NOTE | 2025-08-22 08:56 | W.PN.CRS1 ---
Today's Communication / Plan
-
clears
urine culture
Assessment/Plan
-
POD#3 Exploratory laparotomy, transverse loop colostomy, FRANCK block
Vitals: normal
Hgb: 9.9 (11.6, 14.0), WBC: 8.7 (10.4, 23.2, 18.6)
08/21: NGT removed
-NGT out yesterday. Advance to clear liquids.
-Wound RN for stoma teaching
-Continue IVFs
-Pain control: tylenol/Toradol standing, Dilaudid PRN.
-OR pathology pending
-OOB as tolerated
-Lovenox restarted yesterday. TEDS/SCDS in place.
-UA positive, urine culture sent
-Continue IV Zosyn
-Appreciate hospitalist
-Daily wound care
Subjective Data
Procedure
08/19/2025- Exploratory laparotomy, transverse loop colostomy, FRANCK block
Subjective Data
Date of Service: August 22, 2025
Patient states he has some pain overnight but it has improved. Denies nausea or vomiting. He has flatus and some bowel movements in the bag.
Objective Data
-
Vital Signs
Temp Pulse Resp BP Pulse Ox
98.4 F 67 13 119/66 95
08/22/25 03:47 08/22/25 06:00 08/22/25 06:00 08/22/25 06:00 08/22/25 06:00
Intake & Output
08/21/25 08/22/25 08/23/25
06:59 06:59 06:59
Intake Total 2039 1950 / 1950
Output Total 1225 / 1225 725 / 725 50 / 50
Balance 815 / 815 1225 / 1225 -50 / -50
Intake:
Oral fluids 0 / 0
IV fluids (Total) 1200 / 1200 1800 / 1800
IV piggybacks 100 / 100 150 / 150
Amount instilled into GI Tube ( 740 / 740
Total)
[place] Sump 740 / 740
Output:
Liquid stool amount 25 / 25 50 / 50
Colostomy 25 / 25 50 / 50
Gastrointestinal tube output ( 600 / 600
Total)
[place] Sump 600 / 600
Urine, [place] 625 / 625 200 / 200
Urine, Voided 500 / 500
Other:
Number of unmeasured liquid
stools
Colostomy 25 30
Lab Results
08/22/25 03:41
08/22/25 03:41
Physical Exam
-
General: No Acute Distress and AOx3
Abdomen: Soft, Non Distended, Non Tender and Other (colostomy warm and pink with flatus and BMs)
Skin: Warm and Dry
Wound: Dressing in Place (no further bleeding)
[2025-08-22] MEDS: NSS (PRESERVATIVE FREE) 10 ML IV (09:45)
[2025-08-22] MEDS: PROTONIX IV 40 MG IV (09:46)
--- NOTE | 2025-08-22 13:51 | PN.CDI ---
CDI
- -
CDI:
Physician Documentation Request
Admit Date: 08/19/25 16:54
Physician Documentation Request
Admit Date: 08/19/25 16:54
Dear Doctor/PA,
Please review the following and provide your response in the progress notes.
Clinical Indicators:
Pt admitted with Diverticulitis and abscesses s/p Exploratory laparotomy, transverse loop colostomy 08/19
Progress note 08/21, ' Will control the bleeding from the incision with local measures today. ...Wound: Dressing Changed (active bleeding site anterior portion of wound, pressure held)...'
Trended Hemoglobin/Hematocrits below
Laboratory Tests
08/19/25 08/20/25 08/21/25
11:43 04:46 03:33
Hgb 15.7 14.0 11.6 L
Hct 45.7 40.4 33.4 L
08/22/25
03:41
Hgb 9.9 L
Hct 29.0 L
Please provide a diagnosis for the above findings:
Acute blood loss anemia
Low hemoglobin only
Other ( please specify)
Use of terms such as suspected, likely, concern for, or probable (associated with a specific diagnosis that is being evaluated, monitored, or treated as if it exists) are acceptable and can be coded in the inpatient setting, when documented at the
time of discharge.
Thank you,
Ava Jimenez RN
CDI Specialist
[place] [facility]
-
Please use your independent medical judgment in providing your response.
--- NOTE | 2025-08-22 15:49 | PTOTSP ---
PATIENT MOBILIZING INDEPENDENTLY ON LEVEL SURFACES WELL ELEVATIONS REQUIRING NO FURTHER ACUTE CARE SKILLED P.T. WILL DISCHARGE FROM P.T. SERVICES.
[2025-08-22] MEDS: CALCIUM GLUCONATE 10% INJECTION 130 MG IV (16:13)
--- NOTE | 2025-08-22 17:30 | PTCARENOTE ---
Patient AAOx3, up a few times today to chair and walking with PT. VSS. Pain controlled. Tolerating CLD, reported that he 'felt full quickly and still feels full.' Colostomy CDI and stooling. Midline incision CDI. Patient able to make his needs
known. Family at bedside. Will continue to closely monitor.
--- NOTE | 2025-08-22 17:39 | CM ---
F/U: Patient cleared with PT/OT. Now seeing if the patient will need Abx for home. Anticipate Home No Needs.
--- NOTE | 2025-08-22 19:10 | PTCARENOTE ---
received pt from [facility] nurse.pt AAOX3. VSS. Midline incision c/d/i. Colostomy appliance intact and functioning;stoma appears pink and moist with no signs of irritation or leakage. Provided initial education regarding colostomy care, including
pouch assessment, skin protection and emptying frequency. Will continue to assist and provide teaching as needed. Plan of care ongoing.
[2025-08-22] MEDS: DILAUDID 0.25 MG IV (23:46)
[2025-08-23] VITALS (11 sets, daily range): BP systolic 108–157; BP diastolic 71–107
[2025-08-23] MEDS: TORADOL 15 MG IV ×4 (03:04→21:09)
[2025-08-23 03:29] LABS: Hematocrit 29.0 % (39.0-52.0); Hemoglobin 10.0 g/dL (13.0-18.0); Mean Corp Hgb Conc. 34.5 g/dL (33.0-37.0); Mean Corpuscular Volume 86.6 fL (80.0-94.0); Nucleated Red Blood Cells % 0 % (-); Platelet Count 296 10^3/uL (130-400); Red Cell Dist. Width 13.1 % (11.5-14.5)
[2025-08-23 03:54] LABS: Blood Urea Nitrogen 14 mg/dl (9-20); Calcium 7.8 mg/dl (8.4-10.2); Carbon Dioxide 28 mmol/L (22-30); Chloride 102 mmol/L (98-107); Estimated Creatinine Clearance 105 ml/min; Glucose 81 mg/dl (70-99); Potassium 4.0 mmol/L (3.5-5.1); Sodium 132 mmol/L (135-145); eGFR > 60.00
[2025-08-23] MEDS: ZOSYN 50 IV ×4 (05:16→23:57)
[2025-08-23] MEDS: PROTONIX IV 40 MG IV (08:17)
[2025-08-23] MEDS: TYLENOL 650 MG PO (08:18)
[2025-08-23] MEDS: NSS (PRESERVATIVE FREE) 10 ML IV (08:18)
[2025-08-23] MEDS: ROXICODONE 5 MG PO ×3 (10:02→19:11)
--- NOTE | 2025-08-23 13:15 | W.PN.CRS1 ---
Today's Communication / Plan
-
full liquids
transfer to med surg
Assessment/Plan
-
55 yo male presenting with LBO secondary to a hard mass extending from the distal sigmoid colon to below the pelvic reflection (diverticulitis vs cancer)
POD#4 Exploratory laparotomy, transverse loop colostomy, FRANCK block
AFVSS
No leukocytosis
Acute anemia secondary to intraop blood losses and hemodilution, stable
Tolerating clears
+UTI with Urine CX from admission growing ESBL ecoli
Plan;
-Advance to FLD
-Wound RN for stoma teaching, daily wound care
-D/C IVFs
-Pain control: tylenol/Toradol standing, Dilaudid, oxycodone PRN.
-OR pathology pending
-OOB as tolerated
-Lovenox for VTE ppx. TEDS/SCDS in place.
-Continue IV Zosyn for GI and coverage
-Appreciate hospitalist
Transfer to [facility] floor
Subjective Data
Procedure
08/19/2025- Exploratory laparotomy, transverse loop colostomy, FRANCK block
Subjective Data
Date of Service: August 23, 2025
Pt seen and examined at bedside with Dr. Cuevas. Denies n/v. Tolerating clears. Pain improved s/p oxycodone. OOB to chair.
Objective Data
-
Vital Signs
Temp Pulse Resp BP Pulse Ox
97.8 F 64 13 123/72 95
08/23/25 11:29 08/23/25 04:00 08/23/25 04:00 08/23/25 04:00 08/23/25 04:00
Intake & Output
08/22/25 08/23/25 08/24/25
06:59 06:59 06:59
Intake Total 1950 / 1950 1090 / 1090
Output Total 725 / 725 1150 / 1150 475 / 475
Balance 1225 / 1225 -60 / -60 -475 / -475
Intake:
Oral fluids 240 / 240
IV fluids (Total) 1800 / 1800 700 / 700
IV piggybacks 150 / 150 150 / 150
Output:
Liquid stool amount 25 / 25 450 / 450 50 / 50
Colostomy 25 / 25 450 / 450 50 / 50
Urine, [place] 200 / 200
Urine, Voided 500 / 500 700 / 700 425 / 425
Other:
Number of unmeasured liquid
stools
Colostomy 30
Lab Results
08/23/25 03:11
08/23/25 03:11
Physical Exam
-
General: No Acute Distress and AOx3
Abdomen: Soft, Non Distended, Non Tender and Other (colostomy warm and pink with flatus and liquid stool)
Skin: Warm and Dry
Wound: Dressing in Place (no further bleeding)
[2025-08-23] MEDS: NORMOSOL-R/PLASMALYTE-A 1000 IV (13:42)
[2025-08-23] MEDS: LOVENOX 40 MG SC (17:28)
[2025-08-23] MEDS: FLUSH (NSS) 2 FLUSH IV (17:29)
[2025-08-24] MEDS: TORADOL 15 MG IV ×2 (03:09→14:27)
[2025-08-24] MEDS: ZOSYN 50 IV ×3 (05:53→20:02)
[2025-08-24 07:08] VITALS: BP 139/88
[2025-08-24] MEDS: PROTONIX 40 MG PO (10:02)
[2025-08-24] MEDS: TORADOL IV (10:06)
[2025-08-24] MEDS: ROXICODONE 5 MG PO ×3 (10:25→20:04)
--- NOTE | 2025-08-24 11:53 | W.PN.CRS1 ---
Today's Communication / Plan
-
advance diet
Assessment/Plan
-
55 yo male presenting with LBO secondary to a hard mass extending from the distal sigmoid colon to below the pelvic reflection (diverticulitis vs cancer)
POD#5 Exploratory laparotomy, transverse loop colostomy, FRANCK block
AFVSS
No leukocytosis
Tolerating fulls
+UTI with Urine CX from admission growing ESBL ecoli, repeat cx negative. Some mild intermittent hematuria persists
Plan;
-Advance to LRD
-Wound RN for stoma teaching, daily wound care
-Pain control: tylenol/Toradol standing, Dilaudid, oxycodone PRN.
-OR pathology pending
-OOB as tolerated
-Lovenox for VTE ppx. TEDS/SCDS in place.
-Continue IV Zosyn for GI and coverage
-Appreciate hospitalist
Tentative d/c tomorrow after stoma teaching if tolerating diet
Subjective Data
Procedure
08/19/2025- Exploratory laparotomy, transverse loop colostomy, FRANCK block
Subjective Data
Date of Service: August 24, 2025
Pt seen and examined at bedside with Dr. Cuevas. Denies n/v. Passed a BM rectally today. Pain minimal, well controlled. Mild intermittent hematuria
Objective Data
-
Vital Signs
Temp Pulse Resp BP Pulse Ox
98.7 F 73 17 139/88 99
08/24/25 07:08 08/24/25 07:08 08/24/25 07:08 08/24/25 07:08 08/24/25 07:08
Intake & Output
08/23/25 08/24/25 08/25/25
06:59 06:59 06:59
Intake Total 1090 / 1090 1080 / 1080
Output Total 1150 / 1150 2025 / 2025
Balance -60 / -60 -945 / -945
Intake:
Oral fluids 240 / 240 480 / 480
IV fluids (Total) 700 / 700 500 / 500
IV piggybacks 150 / 150 100 / 100
Output:
Liquid stool amount 450 / 450 100 / 100
Colostomy 450 / 450 100 / 100
Urine, Voided 700 / 700 192 / 192
Lab Results
08/23/25 03:11
08/23/25 03:11
Physical Exam
-
General: No Acute Distress and AOx3
Abdomen: Soft, Non Distended, Non Tender and Other (colostomy warm and pink (mild edema which is stable) with flatus and liquid stool)
Skin: Warm and Dry
Wound: Dressing Changed (shaq removed, sandy intact)
[2025-08-24] MEDS: FLUSH (NSS) 2 FLUSH IV (14:22)
[2025-08-24 15:38] VITALS: BP 143/87
[2025-08-24] MEDS: LOVENOX 40 MG SC (20:02)
[2025-08-24 23:02] VITALS: BP 116/73
[2025-08-25] MEDS: ZOSYN 50 IV ×3 (01:15→12:56)
[2025-08-25 07:31] VITALS: BP 122/77
[2025-08-25] MEDS: PROTONIX 40 MG PO (08:37)
--- NOTE | 2025-08-25 10:02 | W.PN.CRS1 ---
Addendum entered and electronically signed by Betsy Vickers PA-C 08/26/25 13:07:
Of note, his hemoglobin dropped from 11.6 to 15.7 over the course of two days. This was likely due to acute blood loss anemia mixed with IV fluid dilution.
Original Note:
Today's Communication / Plan
-
dc after wound teaching
finish course of abx
Assessment/Plan
-
55 yo male presenting with LBO secondary to a hard mass extending from the distal sigmoid colon to below the pelvic reflection (diverticulitis vs cancer)
POD#6 Exploratory laparotomy, transverse loop colostomy, FRANCK block
AFVSS
Plan;
-Continue low residue diet
-Wound RN for stoma teaching, daily wound care
-Pain control: tylenol/Toradol standing, Dilaudid, oxycodone PRN.
-OOB as tolerated
-Lovenox for VTE ppx. TEDS/SCDS in place.
-Continue IV Zosyn for GI and coverage - will have patient finish course as outpatient
-Appreciate hospitalist
-DC later today after last teaching. CM for VN. Discharge instructions discussed with patient including medications, activity levels, and follow up. Follow up in office with Dr. Miranda in 1-2 weeks.
Subjective Data
Procedure
08/19/2025- Exploratory laparotomy, transverse loop colostomy, FRANCK block
Subjective Data
Date of Service: August 25, 2025
Patient states he feels well today. His pain is controlled. Denies nausea or vomiting. He is tolerating a diet.
Objective Data
-
Vital Signs
Temp Pulse Resp BP Pulse Ox
98.6 F 70 18 122/77 97
08/25/25 07:31 08/25/25 07:31 08/25/25 07:31 08/25/25 07:31 08/25/25 07:31
Intake & Output
08/24/25 08/25/25 08/26/25
06:59 06:59 06:59
Intake Total 1080 / 1080 1180 / 1180
Output Total 2024
Balance -945 / -945 1180 / 1180
Intake:
Oral fluids 480 / 480 1080 / 1080
IV fluids (Total) 500 / 500 100 / 100
IV piggybacks 100 / 100
Output:
Liquid stool amount 100 / 100
Colostomy 100 / 100
Urine, Voided 1924
Other:
Number of approximated MODERATE 3
amounts of urine
Lab Results
08/23/25 03:11
08/23/25 03:11
Physical Exam
-
General: No Acute Distress and AOx3
Abdomen: Soft, Non Distended, Non Tender and Other (colostomy warm and pink with function)
Wound: No Signs of Infection
Incision: Clear, Dry, Intact
--- NOTE | 2025-08-25 11:53 | CM ---
CM reviewed chart and noted dc order
Pt is POD#6 new ostomy
VN order placed
Bedside visit with pt- referral to [facility] per request
Spouse will arrive at 1300 for bedside teaching with [facility] nurse
No other dc needs noted
Discharge Disposition- home with [facility] and new ostomy
--- NOTE | 2025-08-25 12:44 | VNURNOTE ---
Home Health Liaison met with patient at bedside to discuss [facility] nurse/therapy, visits, schedule and homebound status. Patient is agreeable and understands that visits at home will be 2-3 x per week to assess and teach medical and ostomy
management.
Patient is aware that [facility] will contact them for start of care within a week after discharge from . Provided contact number for [facility].
PM [facility] referral completed in [facility].
[2025-08-25] MEDS: ROXICODONE 5 MG PO (13:16)
--- NOTE | 2025-08-25 15:06 | WOUNDNOTE ---
[facility] RN note: Patient discharged today. Patient ambulatory. Skin on heels intact. Stoma pink and budded with stoma bridge intact. Ostomy functioning for liquid brown stool. Peristomal skin intact. Instructed patient and how to empty and change
appliance using [place] wafer # [id number], Jeramie seal and [place] pouch # [id number]. There was scant effluent moisture along medial edge of removed wafer. Instructed patient how to apply Jeramie seal. Patient stated he's been independent with pouch
emptying. Ostomy supplies and colostomy teaching folder with patient. t/c SPD and ordered more supplies including Jeramie seals. VN to follow patient after discharge. Next appliance change due or Monday.
--- NOTE | 2025-08-25 16:05 | WOUNDNOTE ---
[facility]OC RN note: Pedro Rothman [facility] nurse Liaison re: Patient will need Jeramie seals besides the [place] wafer and pouches when VN orders supplies.
== END 2025-08-25 15:36 | disposition home health service (06) | DRG 329 ==
LOC: 2 NORTH 16:54
PROVIDERS: Physician Assistant; Registered Nurse; ADMITTING PHYSICIAN Hospitalist; ATTENDING PHYSICIAN Surgery; CONSULT PHYSICIAN Surgery; EMERGENCY PHYSICIAN Emergency Medicine; FAMILY PHYSICIAN Family Medicine
PROC: 0D1L0Z4 Bypass Transverse Colon to Cutaneous, Open Approach (ICD-10-PCS; 2025-08-19)
DX: K57.20 Diverticulitis of large intestine with perforation and abscess without bleeding (principal); K65.1 Peritoneal abscess; D62 Acute posthemorrhagic anemia; K56.609 Unspecified intestinal obstruction, unspecified as to partial versus complete obstruction; E87.1 Hypo-osmolality and hyponatremia; N39.0 Urinary tract infection, site not specified; K91.71 Accidental puncture and laceration of a digestive system organ or structure during a digestive system procedure; K40.90 Unilateral inguinal hernia, without obstruction or gangrene, not specified as recurrent; Z87.891 Personal history of nicotine dependence
CPT/HCPCS: 74177; 80048; 80053; 81003; 81015; 82962; 83690; 85025; 85027; 86850; 86900; 86901; 87040; 87070; 87075; 87077; 87086; 87186; 87205; 93005; 96365; 96375; 97116; 97163; 97530; 99285; Q9967